=== PATIENT | male | born 1990 | race Caucasian/White ===

== ENCOUNTER 2024-05-09 20:40 | Observation (INO) | payer OTHER ==
[~2024-05-09] VITALS: Ht 180.3 cm; Wt 76.1 kg
[2024-05-09 21:53] VITALS: BP 130/87; PULSE 76; TEMP 98.2
--- NOTE | 2024-05-09 23:16 | NUR ---
Patient arrived to the floor from [facility] at 2147 via EMS, A/Ox4, admission assessment and intake done, stated that he no longer takes any home medications, hospital policies orientated, reports minimal pain, NPO starting midnight as verbally ordered by Jason, the PA, denies further needs, call light and personal items within reach, will continue to monitor.
[2024-05-09] MEDS ORDERED: Ondansetron 4 MG/2 ML VIAL IV PRN (23:30)
[2024-05-09] MEDS ORDERED: Acetaminophen 325 MG TAB PO PRN (23:30)
[2024-05-09] MEDS ORDERED: LR 1,000 ML IV SCH (23:30)
[2024-05-09] MEDS ORDERED: Morphine 4 MG/ML VIAL IV PRN (23:45)
[2024-05-10] VITALS (21 sets, daily range): BP systolic 105–138; BP diastolic 69–96; PULSE 58–120; TEMP 97.4–98
--- NOTE | 2024-05-10 01:00 | NUR ---
Patient reports minimal pain at this time, denies the needs for pain meds, reminded to call whenever pain increases. Patient also stated that he stopped taking his multaq about 3 months ago.
[2024-05-10] MEDS ORDERED: MULTAQ400 MG PO (02:03)
--- NOTE | 2024-05-10 05:10 | NUR ---
Received report form PAGE Odonnell. Pt sleeping at this time. Call light in reach.
--- NOTE | 2024-05-10 07:24 | NUR ---
Bedside report received from PAGE Gilmore. Pt awake in bed with no complaints. Call light within reach.
[2024-05-10 08:08] LABS: BASO % 0.5 % (0.0-2.0); EOS # 0.1 K/mm3 (0.0-0.7); GRAN # 2.4 K/mm3 (1.4-6.5); GRAN % 55.1 % (42.2-75.2); HEMATOCRIT 39.3 % (42.0-52.0); HEMOGLOBIN 13.8 g/dl (13.5-18.0); LYMPH # 1.5 K/mm3 (1.2-3.4); LYMPH % 34.2 % (20.0-51.0); MEAN CELL VOLUME 87 fl (80.0-100.0); MEAN CORPUSCULAR HEMOGLOBIN 30 pg (27-31); MEAN CORPUSCULAR HGB CONC 35 g/dl (33.0-37.0); MEAN PLATELET VOLUME 9.1 fl (7.4-10.4); MONO # 0.4 K/mm3 (0.1-0.6); MONO % 8.2 % (1.7-9.3); PLATELET COUNT 235 K/mm3 (130-400); RED BLOOD COUNT 4.54 M/mm3 (4.20-5.60); REDCELL DISTRIBUTION WIDTH-CV 11.5 % (11.5-14.5)
[2024-05-10 08:38] LABS: BILIRUBIN,TOTAL 2.6 mg/dL (0.2-1.2); CALCIUM 9.1 mg/dL (8.4-10.2); CREATININE, serum 0.96 mg/dL (0.72-1.25); POTASSIUM 4.1 mEq/L (3.5-4.5); TOTAL PROTEIN 6.4 g/dl (6.2-8.1)
[2024-05-10] MEDS ORDERED: Pantoprazole 40 MG in NS 10 ML IV SCH (09:00)
--- NOTE | 2024-05-10 09:23 | NUR ---
SW met with patient to complete initial assessment for discharge planning, Patient verified that [place] is [place] [employer] [place] lives with his Moe ([phone]) who is also his DPOA. They have a 4 month old daughter. Patient uses [facility] for his medical care and pharmacy needs. Patient is independent and plans to return home with his Leadership to drive him at discharge. Discharge plan: Home
[2024-05-10 09:57] LABS: CHOLESTEROL RISK RATIO 3.4
[2024-05-10] MEDS ORDERED: Regadenoson 0.08 MG/ML 5 ML SYRINGE IV SCH (11:09)
[2024-05-10] MEDS ORDERED: Indocyanine Green 6.25 MG in Water For Injection,Sterile 1.25 ML IV ONE (13:15)
[2024-05-10] MEDS ORDERED: Meperidine 50 MG/ML 1 ML VIAL IV PRN (13:15)
[2024-05-10] MEDS ORDERED: Morphine 2 MG/1 ML VIAL [PACU/SDC ONLY] IV PRN (13:15)
[2024-05-10] MEDS ORDERED: HYDROmorphone 1 MG/1 ML SYRINGE [PACU/SDC ONLY] IV PRN (13:15)
[2024-05-10] MEDS ORDERED: LR 1,000 ML IV SCH (13:15)
[2024-05-10] MEDS ORDERED: Ondansetron 4 MG/2 ML VIAL IV PRN ×2 (13:15→16:30)
[2024-05-10] MEDS ORDERED: NS 10 ML IV ONE (14:12)
[2024-05-10] MEDS ORDERED: dexAMETHasone 10 MG/ML VIAL ONE (14:12)
[2024-05-10] MEDS ORDERED: Glycopyrrolate 0.2 MG/ML 1 ML VIAL ONE (14:12)
[2024-05-10] MEDS ORDERED: fentaNYL 50 MCG/ML 2 ML VIAL ONE (14:12)
[2024-05-10] MEDS ORDERED: Ketorolac 30 MG/ML VIAL ONE (14:12)
[2024-05-10] MEDS ORDERED: Ondansetron 4 MG/2 ML VIAL ONE (14:12)
[2024-05-10] MEDS ORDERED: Rocuronium 50 MG/5 ML Multi-Dose VIAL ONE (15:10)
[2024-05-10] MEDS ORDERED: Naloxone 0.4 MG/ML VIAL IV PRN (16:30)
--- NOTE | 2024-05-10 17:38 | NUR ---
Pt back to surgical floor from PACU. Pt awake in bed. Denies pain rating 0/10. ABD incisions CDI covered with bandaids. Report received from COMPLIANCE AIDE Erica. CANTOR. Pt has no request at this time. Call light within reach.
--- NOTE | 2024-05-10 20:02 | NUR ---
Patient assessed at this time. Alert and oriented, and able to make needs known. Reported pain at a 7. Given scheduled Motrin per orders. Encouraged to get up and ambulate to help decrease gas pains in abdomen and chest area. Peripheral INT to right AC. Denies SOB and dyspnea. LS CTA. HRR. Telemetry in place. BS hypoactive x 4. Not passing rectal gas, but is belching. No edema. 4 lap sites to abdomen have bandaids, sites CDI. Voices no questions, needs, or concerns at this time. In bed with call light within reach.
[2024-05-10] MEDS ORDERED: Ibuprofen 600 MG TAB PO SCH (20:29)
[2024-05-11 00:19] VITALS: BP 116/70; PULSE 92; TEMP 98
[2024-05-11 00:21] VITALS: BP_SYST 116
[2024-05-11 03:56] VITALS: BP 118/68; PULSE 81; TEMP 98.2
[2024-05-11 05:12] VITALS: BP_SYST 118
--- NOTE | 2024-05-11 05:32 | NUR ---
Patient received scheduled Motrin and PRN [place] as requested during the night. Did ambuate in hallway last night to help decrease gas pains. Patient ate 3 sandwiches and reported he had emesis around 2300. Encouraged to just try clears the rest of the night, and had no further complaints of emesis. Bandaid closest to belly button changed for bleeding. Voices no further questions, needs, or concerns at this time. In bed with call light within reach.
[2024-05-11 06:35] LABS: GRAN # 8.5 K/mm3 (1.4-6.5); GRAN % 88.3 % (42.2-75.2); HEMATOCRIT 41.7 % (42.0-52.0); HEMOGLOBIN 15.3 g/dl (13.5-18.0); LYMPH # 0.7 K/mm3 (1.2-3.4); LYMPH % 7.3 % (20.0-51.0); MEAN CELL VOLUME 84 fl (80.0-100.0); MEAN CORPUSCULAR HEMOGLOBIN 31 pg (27-31); MEAN CORPUSCULAR HGB CONC 37 g/dl (33.0-37.0); MEAN PLATELET VOLUME 9.3 fl (7.4-10.4); MONO # 0.4 K/mm3 (0.1-0.6); PLATELET COUNT 302 K/mm3 (130-400); RED BLOOD COUNT 4.94 M/mm3 (4.20-5.60); REDCELL DISTRIBUTION WIDTH-CV 11.3 % (11.5-14.5)
[2024-05-11 06:50] LABS: ALBUMIN 4.5 g/dL (3.5-5.0); BILIRUBIN,TOTAL 1.8 mg/dL (0.2-1.2); CALCIUM 9.6 mg/dL (8.4-10.2); CREATININE, serum 1.14 mg/dL (0.72-1.25); POTASSIUM 4.2 mEq/L (3.5-4.5); TOTAL PROTEIN 7.6 g/dl (6.2-8.1)
[2024-05-11 07:36] VITALS: BP 113/78; PULSE 76; TEMP 98.1
--- NOTE | 2024-05-11 08:18 | NUR ---
Pt. sitting at bedside upon entry. Pt. is fully dressed and inquiring about discharge plans. PAGE Alvarenga, answered pt.'s questions. Administered scheduled meds per DEC. Performed shift assessment. Pt. c/o 3/10 pain R abdominal pain but denies need for additional analgesia stating his pain goal is 4/10. Bowel sounds are audible in all quadrants. Pt. denies N/V and states he is passing flatus. Pt. has 4x abdominal incisions dressed with bandaids. All dressings CDI. No other outstanding findings. Pt. denies any requests. Call light in reach.
[2024-05-11 08:23] VITALS: BP_SYST 113
[2024-05-11] MEDS ORDERED: NORCO 325 MG-51 TAB PO (10:05)
--- NOTE | 2024-05-11 10:45 | NUR ---
Discontinued INT. Catheter tip intact. Discontinued telemetry. Colette RN, reviewed discharge instructions w/ pt. Pt. verbally expresses understanding. CHITRA Bell, accompanied pt. to POV.
== END 2024-05-11 10:45 | disposition home or self-care (01) ==
LOC: SURG 20:40
PROVIDERS: Physician Assistant; ADMIT Internal Medicine
DX: K80.12 Calculus of gallbladder with acute and chronic cholecystitis without obstruction (principal); I48.91 Unspecified atrial fibrillation; Z79.899 Other long term (current) drug therapy; Z87.891 Personal history of nicotine dependence
CPT/HCPCS: A9500-JZ; G0378; G0379; J0690; J1100; J1170; J1885; J2270; J2405; J2470; J2704; J2785; J3010; J7120